=== PATIENT | male | born 1970 | race Caucasian/White ===

== ENCOUNTER 2017-06-27 23:03 | Emergency (ER) | payer OTHER ==
[~2017-06-27] VITALS: Ht 170.2 cm; Wt 70.0 kg
[2017-06-27 23:20] VITALS: BP 143/90; PULSE 82; RESP 16; TEMP 96.8; O2SAT 98
[2017-06-28 00:54] LABS: AUTOMATED NEUTROPHIL # 4.8 TH/MM3 (1.8-7.7); BASOPHIL # 0.1 TH/MM3 (0-0.2); EOSINOPHIL # 0.2 TH/MM3 (0-0.4); EOSINOPHIL % 1.6 % (0.0-4.0); HEMATOCRIT 43.4 % (39.0-51.0); HEMO FLAGS DIFF FINAL; LYMPH % 42.8 % (9.0-44.0); LYMPHOCYTE # 4.4 TH/MM3 (1.0-4.8); MEAN CELL VOLUME 93.9 FL (80.0-100.0); MEAN CORPUSCULAR HEMOGLOBIN 32.8 PG (27.0-34.0); NEUT % 46.6 % (16.0-70.0); PLATELET COUNT 297 TH/MM3 (150-450); RED BLOOD COUNT 4.62 MIL/MM3 (4.50-5.90); RED CELL DISTRIBUTION WIDTH 14.2 % (11.6-17.2); WHITE BLOOD COUNT 10.3 TH/MM3 (4.0-11.0)
[2017-06-28 01:37] LABS: ALCOHOL LESS THAN 3 MG/DL (0-5); ALT (GPT) 40 U/L (12-78); ANION GAP 12 MEQ/L (5-15); AST (GOT) 26 U/L (15-37); BICARBONATE 22.5 MEQ/L (21.0-32.0); BLOOD UREA NITROGEN 9 MG/DL (7-18); CHLORIDE 105 MEQ/L (98-107); GLOMERULAR FILTRATION RATE 73 ML/MIN (>89); POTASSIUM 3.8 MEQ/L (3.5-5.1); SODIUM (NA) 139 MEQ/L (136-145)
[2017-06-28 01:39] LABS: ALKALINE PHOSPHATASE 71 U/L (45-117); TOTAL BILIRUBIN ADULT 0.5 MG/DL (0.2-1.0)
[2017-06-28 01:42] LABS: ACETAMINOPHEN LESS THAN 2.0 MCG/ML (10.0-30.0)
--- NOTE | 2017-06-28 01:58 | PD ---
HPI . Collazo Act Chief Complaint: OD/ Ingestion Time Seen by Provider: 00:28 Travel History International Travel<30 days: No Contact w/Intl Traveler<30days: No Traveled to known affect area: No History of Present Illness HPI This patient presents as a Collazo Act. He reportedly took some of his sister's medication about an hour ago. He states that it was all just a misunderstanding. PFSH Past Medical History Anxiety: Yes Depression: Yes Social History Alcohol Use: Yes Tobacco Use: Yes Substance Use: No Allergies-Medications (Allergen,Severity, Reaction): Coded Allergies: No Known Allergies (Unverified , 06/27/17) Reported Meds & Prescriptions Reported Meds & Active Scripts Active No Active Prescriptions or Reported Medications Review of Systems Except as stated in HPI: all other systems reviewed are Neg Psychiatric: Positive: Depression, Suicidal Ideations Physical Exam Narrative GENERAL: Awake and alert in no acute distress. SKIN: Warm and dry. Good color. HEAD: Normocephalic/atraumatic. EYES: Pupils are equal. Extraocular movements are intact. NECK: Supple. Full range of motion. CARDIOVASCULAR: Regular rate and rhythm. RESPIRATORY: Nonlabored. MUSCULOSKELETAL: Atraumatic. NEUROLOGICAL: Nonfocal. PSYCHIATRIC: Reportedly depressed. Intentional ingestion. Data Data Last Documented VS Vital Signs Date Time Temp Pulse Resp B/P (MAP) Pulse Ox O2 Delivery O2 Flow Rate FiO2 06/27/17 23:20 96.8 82 16 143/90 (107) 98 Orders Orders Complete Blood Count With Diff (06/28/17 00:29) Comprehensive Metabolic Panel (06/28/17 00:29) Electrocardiogram (06/28/17 00:29) Psych Screen (06/28/17 00:29) Drug Screen, Random Urine (06/28/17 00:29) Alcohol (Ethanol) (06/28/17 00:29) Salicylates (Aspirin) (06/28/17 00:29) Tylenol (Acetaminophen) (06/28/17 00:29) Labs Laboratory Tests Test 06/28/17 00:45 White Blood Count 10.3 TH/MM3 Red Blood Count 4.62 MIL/MM3 Hemoglobin 15.2 GM/DL Hematocrit 43.4 % Mean Corpuscular Volume 93.9 FL Mean Corpuscular Hemoglobin 32.8 PG Mean Corpuscular Hemoglobin Concent 35.0 % Red Cell Distribution Width 14.2 % Platelet Count 297 TH/MM3 Mean Platelet Volume 7.9 FL Neutrophils (%) (Auto) 46.6 % Lymphocytes (%) (Auto) 42.8 % Monocytes (%) (Auto) 8.0 % Eosinophils (%) (Auto) 1.6 % Basophils (%) (Auto) 1.0 % Neutrophils # (Auto) 4.8 TH/MM3 Lymphocytes # (Auto) 4.4 TH/MM3 Monocytes # (Auto) 0.8 TH/MM3 Eosinophils # (Auto) 0.2 TH/MM3 Basophils # (Auto) 0.1 TH/MM3 CBC Comment DIFF FINAL Differential Comment Blood Urea Nitrogen 9 MG/DL Creatinine 1.09 MG/DL Random Glucose 78 MG/DL Total Protein 7.4 GM/DL Albumin 3.6 GM/DL Calcium Level 8.4 MG/DL Alkaline Phosphatase 71 U/L Aspartate Amino Transf (AST/SGOT) 26 U/L Alanine Aminotransferase (ALT/SGPT) 40 U/L Total Bilirubin 0.5 MG/DL Sodium Level 139 MEQ/L Potassium Level 3.8 MEQ/L Chloride Level 105 MEQ/L Carbon Dioxide Level 22.5 MEQ/L Anion Gap 12 MEQ/L Estimat Glomerular Filtration Rate 73 ML/MIN Salicylates Level 2.7 MG/DL Acetaminophen Level LESS THAN 2.0 MCG/ML Ethyl Alcohol Level LESS THAN 3 MG/DL MDM Medical Decision Making Medical Screen Exam Complete: Yes Emergency Medical Condition: Yes Differential Diagnosis Differential diagnosis includes but is not limited to depression with suicidal gesture, suicide attempt, suicidal ideation, attention seeking behavior. Narrative Course This patient presents as a Collazo Act. He will be medically cleared for a psychiatric evaluation. CBC & BMP Diagram 06/28/17 00:45 Total Protein 7.4, Albumin 3.6, Calcium Level 8.4 L, Alkaline Phosphatase 71, Aspartate Amino Transf (AST/SGOT) 26, Alanine Aminotransferase (ALT/SGPT) 40, Total Bilirubin 0.5 ASA 2.7 Tylenol < 2 EtOH <3 This patient is medically clear for psychiatric evaluation. Diagnosis Primary Impression: Encounter for medical screening examination Scripts No Active Prescriptions or Reported Meds Condition: Sherry De La O MD Jun 28, 2017 01:58
[2017-06-28 03:00] VITALS: BP 133/83; PULSE 82; RESP 18; O2SAT 100
[2017-06-28 06:23] VITALS: BP_SYST 129; BP_SYST 160; BP_DIAS 64; BP_DIAS 69; PULSE 74; PULSE 99; RESP 15; RESP 17
--- NOTE | 2017-06-28 13:19 | EKG ---
Date Performed: 06/28/2017 Time Performed: 02:10:33 PTAGE: 47 years EKG: Sinus rhythm NORMAL ECG NO PREVIOUS TRACING DOCTOR: Jamil Bull Interpretating Date/Time 06/28/2017 13:15:24
[2017-06-28 13:45] VITALS: BP 114/67; PULSE 70; RESP 18; TEMP 98.2; O2SAT 98
--- NOTE | 2017-06-28 14:03 | PD ---
History of Present Illness Chief Complaint: OD/ Ingestion Time Seen by Provider: 14:00 Travel History International Travel<30 Days: No Contact w/Intl Traveler<30days: No Known affected area: No Legal Status Legal Status: Collazo Act Collazo Act Signed By: Eve Collazo Act Comment: BA signed by: SHOAIB CHAVIRA Badge#[id number], Case#[id number] History of Present Illness: 47-year-old male admitted for ingesting one of his sisters medicines and reportedly behaving in a suicidal fashion. Patient is having marital difficulties. However, he denies any suicidal or homicidal ideation, plan or intent. He has no psychotic symptoms and his cognition is intact. He states this issue was a "misunderstanding". He is verbally taylor for safety and he is competent to do so. [facility] Past Medical History Anxiety: Yes Depression: Yes Psychiatric History Psychiatric History History of Inpatient Treatment: No Guns or firearms in home: No Social History Hx Alcohol Use: Yes Hx Tobacco Use: Yes Hx Substance Use: No Allergies-Medications (Allergen,Severity, Reaction): Coded Allergies: No Known Allergies (Unverified , 06/27/17) Reported Meds & Prescriptions Reported Meds & Active Scripts Active No Active Prescriptions or Reported Medications Review of Systems Except as stated in HPI: all other systems reviewed are Neg Mental Status Examination Appearance: Appropriate Consciousness: Alert Orientation: x4 Motor Activity: Normal gait Speech: Unremarkable Language: Adequate Fund of Knowledge: Adequate Attention and Concentration: Adequate Memory: Unremarkable Mood: Appropriate Affect: Appropriate Thought Process & Associations: Intact Thought Content: Appropriate Hallucination Type: None Delusion Type: None Suicidal Ideation: No Suicidal Plan: No Suicidal Intention: No Homicidal Ideation: No Homicidal Plan: No Homicidal Intention: No Insight: Adequate Judgment: Adequate MDM Medical Decision Making Medical Record Reviewed: Yes Assessment/Plan Patient interviewed at bedside, medical record reviewed and case discussed with nurse Ulrich. Patient does not meet Collazo act criteria at this time and does not meet criteria for involuntary psychiatric hospitalization. He is verbally taylor for safety and would like to go home. He is competent to make medical decisions. Orders Orders Complete Blood Count With Diff (06/28/17 00:29) Comprehensive Metabolic Panel (06/28/17 00:29) Electrocardiogram (06/28/17 00:29) Psych Screen (06/28/17 00:29) Drug Screen, Random Urine (06/28/17 00:29) Alcohol (Ethanol) (06/28/17 00:29) Salicylates (Aspirin) (06/28/17 00:29) Tylenol (Acetaminophen) (06/28/17 00:29) Diet Regular Basic (06/28/17 Lunch) Results Vital Signs Date Time Temp Pulse Resp B/P (MAP) Pulse Ox O2 Delivery O2 Flow Rate FiO2 06/28/17 13:45 98.2 70 18 114/67 (83) 98 Room Air 06/28/17 06:23 74 17 129/69 (89) 06/28/17 03:00 82 18 133/83 (100) 100 Room Air 06/27/17 23:20 96.8 82 16 143/90 (107) 98 Laboratory Tests Test 06/28/17 00:45 06/28/17 01:20 White Blood Count 10.3 Red Blood Count 4.62 Hemoglobin 15.2 Hematocrit 43.4 Mean Corpuscular Volume 93.9 Mean Corpuscular Hemoglobin 32.8 Mean Corpuscular Hemoglobin Concent 35.0 Red Cell Distribution Width 14.2 Platelet Count 297 Mean Platelet Volume 7.9 Neutrophils (%) (Auto) 46.6 Lymphocytes (%) (Auto) 42.8 Monocytes (%) (Auto) 8.0 Eosinophils (%) (Auto) 1.6 Basophils (%) (Auto) 1.0 Neutrophils # (Auto) 4.8 Lymphocytes # (Auto) 4.4 Monocytes # (Auto) 0.8 Eosinophils # (Auto) 0.2 Basophils # (Auto) 0.1 CBC Comment DIFF FINAL Differential Comment Blood Urea Nitrogen 9 Creatinine 1.09 Random Glucose 78 Total Protein 7.4 Albumin 3.6 Calcium Level 8.4 Alkaline Phosphatase 71 Aspartate Amino Transf (AST/SGOT) 26 Alanine Aminotransferase (ALT/SGPT) 40 Total Bilirubin 0.5 Sodium Level 139 Potassium Level 3.8 Chloride Level 105 Carbon Dioxide Level 22.5 Anion Gap 12 Estimat Glomerular Filtration Rate 73 Salicylates Level 2.7 Acetaminophen Level LESS THAN 2.0 Ethyl Alcohol Level LESS THAN 3 Urine Opiates Screen NEG Urine Barbiturates Screen NEG Urine Amphetamines Screen NEG Urine Benzodiazepines Screen NEG Urine Cocaine Screen POS Urine Cannabinoids Screen NEG Diagnosis Primary Impression: Adjustment disorder with mixed disturbance of emotions and conduct Prescriptions No Active Prescriptions or Reported Meds Condition: Hong Martins MD Jun 28, 2017 14:03
[2017-06-28 14:11] VITALS: BP 114/67; PULSE 70; RESP 18; O2SAT 98
--- NOTE | 2017-06-28 14:50 | PD ---
Physical Exam Date Seen by Provider: Jun 28, 2017 Time Seen by Provider: 14:48 Narrative 47-year-old male patient is cleared medically and psychiatrically from our facility. I was asked to disposition the patient. Data Data Last Documented VS Vital Signs Date Time Temp Pulse Resp B/P (MAP) Pulse Ox O2 Delivery O2 Flow Rate FiO2 06/28/17 14:11 70 18 114/67 (83) 98 Room Air 06/28/17 13:45 98.2 Orders Orders Complete Blood Count With Diff (06/28/17 00:29) Comprehensive Metabolic Panel (06/28/17 00:29) Electrocardiogram (06/28/17 00:29) Psych Screen (06/28/17 00:29) Drug Screen, Random Urine (06/28/17 00:29) Alcohol (Ethanol) (06/28/17 00:29) Salicylates (Aspirin) (06/28/17 00:29) Tylenol (Acetaminophen) (06/28/17 00:29) Diet Regular Basic (06/28/17 Lunch) Labs Laboratory Tests Test 06/28/17 00:45 06/28/17 01:20 White Blood Count 10.3 TH/MM3 Red Blood Count 4.62 MIL/MM3 Hemoglobin 15.2 GM/DL Hematocrit 43.4 % Mean Corpuscular Volume 93.9 FL Mean Corpuscular Hemoglobin 32.8 PG Mean Corpuscular Hemoglobin Concent 35.0 % Red Cell Distribution Width 14.2 % Platelet Count 297 TH/MM3 Mean Platelet Volume 7.9 FL Neutrophils (%) (Auto) 46.6 % Lymphocytes (%) (Auto) 42.8 % Monocytes (%) (Auto) 8.0 % Eosinophils (%) (Auto) 1.6 % Basophils (%) (Auto) 1.0 % Neutrophils # (Auto) 4.8 TH/MM3 Lymphocytes # (Auto) 4.4 TH/MM3 Monocytes # (Auto) 0.8 TH/MM3 Eosinophils # (Auto) 0.2 TH/MM3 Basophils # (Auto) 0.1 TH/MM3 CBC Comment DIFF FINAL Differential Comment Blood Urea Nitrogen 9 MG/DL Creatinine 1.09 MG/DL Random Glucose 78 MG/DL Total Protein 7.4 GM/DL Albumin 3.6 GM/DL Calcium Level 8.4 MG/DL Alkaline Phosphatase 71 U/L Aspartate Amino Transf (AST/SGOT) 26 U/L Alanine Aminotransferase (ALT/SGPT) 40 U/L Total Bilirubin 0.5 MG/DL Sodium Level 139 MEQ/L Potassium Level 3.8 MEQ/L Chloride Level 105 MEQ/L Carbon Dioxide Level 22.5 MEQ/L Anion Gap 12 MEQ/L Estimat Glomerular Filtration Rate 73 ML/MIN Salicylates Level 2.7 MG/DL Acetaminophen Level LESS THAN 2.0 MCG/ML Ethyl Alcohol Level LESS THAN 3 MG/DL Urine Opiates Screen NEG Urine Barbiturates Screen NEG Urine Amphetamines Screen NEG Urine Benzodiazepines Screen NEG Urine Cocaine Screen POS Urine Cannabinoids Screen NEG MDM Supervised Visit with NETTA: Yes Differential Diagnosis Depression versus suicidal ideation versus anxiety versus adjustment disorder versus mood disorder versus bipolar disorder versus schizophrenia versus paranoid disorder versus psychosis versus substance abuse versus alcohol abuse versus alcohol induced psychosis versus homicidality addition versus cutting versus personality disorder Narrative Course 47-year-old male patient presented to the emergency department for psychiatric related complaints and was cleared medically and psychiatrically. I was asked to disposition the patient home. The patient will be dispositioned home with instructions to follow-up with [facility] and Jose. Diagnosis Primary Impression: Adjustment disorder with mixed disturbance of emotions and conduct Referrals: [facility] (Out patient) as needed [facility] needed Mental Health and Substance Abuse Patient Instructions: General Instructions, Mood Disorders (ED), Medical Clearance for Psychiatric Care (ED) Departure Forms: Tests/Procedures Additional Instruction: Dx: Adjustment Disorder with mixed Disturbance of Emotion and Conduct Please return to ED if symptoms worsen. Scripts No Active Prescriptions or Reported Meds Disposition: 01 DISCHARGE HOME Condition: Stable Lola Lindsay Jun 28, 2017 14:50
== END 2017-06-28 16:32 | disposition home or self-care (01) ==
LOC: NEPE 23:03 → NEPJ 06-28 16:32
DX: F43.25 Adjustment disorder with mixed disturbance of emotions and conduct (principal); F41.9 Anxiety disorder, unspecified; F32.9 Major depressive disorder, single episode, unspecified; Z87.891 Personal history of nicotine dependence
CPT/HCPCS: 80053; 80307; 85025; 93005